=== PATIENT | male | born 1945 | race Caucasian/White ===

== ENCOUNTER → 2018-02-06 | Outpatient (CLI) | payer BC ==
[~2018-02-06] MED LIST: Advil200 M1 PO; BGALA3.3 PO; CLOB.05TC TOP; ERGO400; Gas-X125 MG PO; NAPR220 PO; Pepto-Bismol262 M1 PO; XYZAL5 MG PO
== END | disposition home or self-care (01) ==
LOC: PLD 08:31 → LAB SHORT 08:31
DX: D48.5 Neoplasm of uncertain behavior of skin (principal); L72.9 Follicular cyst of the skin and subcutaneous tissue, unspecified
CPT/HCPCS: 88304

== ENCOUNTER 2018-05-31 15:57 | Emergency (ER) | payer BC, MEDICARE ==
[~2018-05-31] VITALS: Ht 175.3 cm; Wt 83.0 kg
[~2018-05-31 15:57] MED LIST changes: -ERGO400; +ERGO400 PO
[2018-05-31] MEDS ORDERED: TRAM50 PO (16:41)
[2018-05-31] MEDS ORDERED: Prednisone2.5 MG PO (16:42)
[2018-05-31] MEDS ORDERED: CALCIUM 500 +1 EAC1 PO (16:43)
[2018-05-31] MEDS ORDERED: PRED20 PO (16:44)
[2018-05-31 19:00] LABS: Source, Urine Clean Catch
[2018-05-31 19:07] LABS: Appearance, Urine Hazy (Clear); Bilirubin, Urine Neg (Neg); Blood, Urine 1+ (Neg); Color, Urine Yellow (P-Yellow); Glucose Qualitative, Urine 1+ (Neg); Ketones, Urine 1+ (Neg); Leukocyte Esterase, Urine 1+ (Neg); Nitrite, Urine Neg (Neg); Protein, Urine 2+ (Neg); Urobilinogen, Urine 1+ (Normal)
[2018-05-31 19:45] LABS: White Blood Cells, Urine 0-2 /hpf (0-5)
[2018-05-31 19:46] LABS: Red Blood Cells, Urine 0-2 /hpf (0-2); Renal Epithelial Rare /hpf (0-Rare)
[2018-05-31 19:47] LABS: Bacteria Few /hpf; Calcium Oxalate Crystals Many /hpf; Squamous Epithelial Cells Rare /hpf (Few)
[2018-05-31] MEDS ORDERED: CYCL10 PO (21:41)
[2018-05-31] MEDS ORDERED: Norco 5-325 Ta1 EACH PO (21:41)
== END 2018-05-31 22:04 | disposition home or self-care (01) ==
LOC: ER 15:57
PROVIDERS: Emergency Medicine
DX: M48.54XA Collapsed vertebra, not elsewhere classified, thoracic region, initial encounter for fracture (principal); M35.3 Polymyalgia rheumatica; Z88.2 Allergy status to sulfonamides; Z79.899 Other long term (current) drug therapy
CPT/HCPCS: 72070; 72128; 81001; 96372; 99284-25; J1885; J3010

== ENCOUNTER 2018-07-27 23:27 | Inpatient (IN) | payer MEDICARE, BC ==
[~2018-07-27] VITALS: Ht 177.8 cm; Wt 81.8 kg
[~2018-07-27 23:27] MED LIST changes: -BGALA3.3 PO; +CALCIUM 500 +1 EAC1 PO; +CYCL10 PO; +Dairy Relie3000 UNIT PO; +Norco 5-325 Ta1 EACH PO; +PRED20 PO; +Prednisone2.5 MG PO; +TRAM50 PO
[2018-07-28 00:24] LABS: Hematocrit 41.9 % (37.0-53.0); Mean Corpuscular HGB 31.6 pg (26.0-34.0); Mean Corpuscular HGB Conc 33.4 g/dL (31.5-36.5); Mean Corpuscular Volume 95 fL (80-100); Mean Platelet Volume 9.4 fL (9.1-12.4); Platelet Count 179 K/mm3 (150-400); RDW Coefficient Variation 12.3 % (11.7-14.2); Red Blood Cell Count 4.43 M/mm3 (4.30-5.90); White Blood Cell Count 5.22 K/mm3 (4.00-11.30)
[2018-07-28 00:36] LABS: International Normalized Ratio 1.08; Prothrombin Time Results 11.4 Sec (9.7-11.5)
[2018-07-28 00:37] LABS: Influenza A Positive (NEGATIVE); Influenza B Negative (NEGATIVE)
[2018-07-28 00:38] LABS: Alanine Aminotransfer (ALT/SGP 62 U/L (12-78); Albumin, Blood 3.3 g/dL (3.4-5.0); Albumin/Globulin Ratio 1.2 (0.8-1.8); Alk Phos 68 U/L (50-136); Anion Gap 10 mmol/L (6-16); Aspartate Aminotrans (AST/SGOT 34 U/L (12-37); Bilirubin, Total 1.4 mg/dL (0.1-1.0); Blood Urea Nitrogen 17 mg/dL (8-24); Bun/Creatinine Ratio 20.6 (12.0-20.0); CO2, Blood 21 mmol/L (21-32); Calcium, Blood 8.1 mg/dL (8.5-10.1); Chloride, Blood 105 mmol/L (98-108); Creatinine, Blood 0.82 mg/dL (0.60-1.20); Globulin, Blood 2.7 g/dL (2.2-4.0); Glomerular Filtration Rate >60 (60-); Glucose, Blood 91 mg/dL (70-99); Potassium, Blood 3.7 mmol/L (3.5-5.5); Sodium, Blood 136 mmol/L (136-145)
[2018-07-28 00:48] LABS: BAND PERCENT MAN 10 % (0-8); BASOPHILS ABSOLUTE MAN 0.05 K/mm3 (0.00-0.23); BASOPHILS PERCENT MAN 1 % (0-2); EOSINOPHILS PERCENT MAN 0 % (0-6); LYMPHOCYTES PERCENT MAN 4 % (21-46); MONOCYTES ABSOLUTE MAN 0.31 K/mm3 (0.16-1.47); MONOCYTES PERCENT MAN 6 % (4-13); MYELOCYTE ABSOLUTE MAN 0.05 K/mm3 (0.00-0.00); MYELOCYTE PERCENT MAN 1 % (0-0); NEUTROPHILS ABSOLUTE MAN 4.59 K/mm3 (1.96-9.15); SEG NEUTROPHILS PERCENT MAN 78 % (41-73); TOTAL CELLS COUNTED 100
[2018-07-28 03:25] LABS: Bilirubin, Urine Neg (Neg); Blood, Urine 1+ (Neg); Glucose Qualitative, Urine Neg (Neg); Ketones, Urine 4+ (Neg); Leukocyte Esterase, Urine Neg (Neg); Nitrite, Urine Neg (Neg); Protein, Urine 2+ (Neg); Source, Urine Catheter; Urobilinogen, Urine NORM (Normal)
[2018-07-28 03:47] LABS: Appearance, Urine Clear (Clear); Color, Urine Yellow (P-Yellow)
[2018-07-28 03:48] LABS: Bacteria Not Seen /hpf; Mucus Light (0-Heavy); Red Blood Cells, Urine Rare /hpf (0-2); Squamous Epithelial Cells Not Seen /hpf (Few); White Blood Cells, Urine Rare /hpf (0-5)
[2018-07-28 04:53] LABS: Source, Urine Clean Catch
[2018-07-28 04:59] LABS: Bilirubin, Urine Neg (Neg); Blood, Urine Neg (Neg); Glucose Qualitative, Urine Neg (Neg); Ketones, Urine 3+ (Neg); Leukocyte Esterase, Urine Neg (Neg); Nitrite, Urine Neg (Neg); Protein, Urine Neg (Neg); Urobilinogen, Urine NORM (Normal)
[2018-07-28 05:01] LABS: Appearance, Urine Clear (Clear); Color, Urine Yellow (P-Yellow)
[2018-07-28 05:51] LABS: Mean Corpuscular HGB 31.5 pg (26.0-34.0); Mean Corpuscular HGB Conc 32.6 g/dL (31.5-36.5); Mean Corpuscular Volume 97 fL (80-100); Mean Platelet Volume 9.7 fL (9.1-12.4); Platelet Count 156 K/mm3 (150-400); RDW Coefficient Variation 12.5 % (11.7-14.2); Red Blood Cell Count 4.45 M/mm3 (4.30-5.90); White Blood Cell Count 4.93 K/mm3 (4.00-11.30)
[2018-07-28 06:12] LABS: Adenovirus Not Detected (NOT DETECT); Bordetella pertussis Not Detected (NOT DETECT); Chlamydophila pneumoniae Not Detected (NOT DETECT); Coronavirus 229E Not Detected (NOT DETECT); Coronavirus HKU1 Not Detected (NOT DETECT); Coronavirus NL63 Not Detected (NOT DETECT); Coronavirus OC43 Not Detected (NOT DETECT); Human Metapneumovirus Not Detected (NOT DETECT); Human Rhinovirus/Enterovirus Not Detected (NOT DETECT); Influenza A Detected (NOT DETECT); Influenza A/2009-H1 Detected (NOT DETECT); Influenza A/H1 Not Detected (NOT DETECT); Influenza A/H3 Not Detected (NOT DETECT); Influenza B Not Detected (NOT DETECT); Mycoplasma pneumoniae Not Detected (NOT DETECT); Parainfluenza Virus 1 Not Detected (NOT DETECT); Parainfluenza Virus 2 Not Detected (NOT DETECT); Parainfluenza Virus 3 Not Detected (NOT DETECT); Parainfluenza Virus 4 Not Detected (NOT DETECT); Respiratory Syncytial Virus Not Detected (NOT DETECT)
[2018-07-28 06:21] LABS: Alanine Aminotransfer (ALT/SGP 57 U/L (12-78); Albumin, Blood 3.2 g/dL (3.4-5.0); Albumin/Globulin Ratio 1.2 (0.8-1.8); Alk Phos 65 U/L (50-136); Anion Gap 6 mmol/L (6-16); Aspartate Aminotrans (AST/SGOT 35 U/L (12-37); Bilirubin, Total 1.4 mg/dL (0.1-1.0); Blood Urea Nitrogen 17 mg/dL (8-24); Bun/Creatinine Ratio 19.4 (12.0-20.0); CO2, Blood 26 mmol/L (21-32); Calcium, Blood 8.2 mg/dL (8.5-10.1); Chloride, Blood 105 mmol/L (98-108); Creatinine, Blood 0.88 mg/dL (0.60-1.20); Globulin, Blood 2.7 g/dL (2.2-4.0); Glomerular Filtration Rate >60 (60-); Glucose, Blood 83 mg/dL (70-99); Potassium, Blood 4.1 mmol/L (3.5-5.5); Sodium, Blood 137 mmol/L (136-145); Total Protein, Blood 5.9 g/dL (6.4-8.2)
--- NOTE | 2018-07-28 06:37 | NUR ---
SHIFT SUMMARY PT NEW ED ADMIT THIS AM AT APPROX 0400. VERY WEAK AND TIRED BUT ALERT AND ORIENTED AND ANSWERS QUESTIONS APPROPRIATELY. HX OF RECENT FALL AT HOME. BED ALARM ON FOR SAFETY. PT STATED THAT HE WAS UNABLE TO STAND UPON ADMISSION. SLID OVER FROM ED GURNEY AND ON TO HOSPITAL BED. HAS BEEN CONTINENT SO FAR, USING THE URINAL BUT WAS REPORTED TO BE INCONTINENT IN ED. ATTENDS IN PLACE. UA SENT. BLADDER SCAN 22 ML POST VOID AFTER VOIDING 170 ML. RESPIRATORY PANEL ALSO COLLECTED AND SENT TO LAB. PT UNABLE AT THIS TIME TO PRODUCE ANY SPUTUM. PT HAS DRY HACKING NONPRODUCTIVE COUGH. TROPONIN ELEVATED AT 0.071, TELEMETRY UNIT PLACED READING SR 77. PT ON RA, O2 SATS IN THE LOW 90'S. AFEBRILE SINCE ADMISSION. REPORT OF TYLENOL GIVEN BY EMS. INFLUENZA A POSITIVE. PT OVERALL LOOKS ILL. RESTING IN BED AT THIS TIME. WILL REPORT TO DAY RN.
--- NOTE | 2018-07-28 08:30 | NUR ---
PT A/O DENIES PAIN. SOMEWHAT SLOW TO RESPOND. SAYS TIRED. H/R REG, NO MURMER NOTED. PER TELE NSR AT 81; RESP EASY, UNLABORED. ON R/A. LUNGS ARE COARSE AND WHEEZY T/O. BT X4 LAST BM F2 DAYS. STATES NOT EATING MUCH. VOIDS PER UIRINAL. 1 ASST TO BSC. BED IN LOW POSITION, CALL LITE IN REACH, CALLS APPROP
[2018-07-28 09:08] LABS: CPK Creatine Kinase 347 U/L (39-308)
[2018-07-28 09:30] LABS: Creatine Kinase MB < 1.0 ng/mL (0.0-3.6); Creatine Kinase MB Index 0.3 (0.0-4.0)
--- NOTE | 2018-07-28 12:43 | NUR ---
PATIENT DID NOT WANT LUNCH WHEN I BROUGHT IT IN TO HIM. PATIENT DECLINED HE IS NOT FEELING WELL. RN NOTOFIED. I OFFERED ALTERNATIVES AND LET PATIENT KNOW TO LET ME KNOW IF HE GETS HUNGRY.
[2018-07-28 16:59] LABS: CPK Creatine Kinase 366 U/L (39-308); Troponin I 0.051 ng/mL (0.000-0.040)
[2018-07-28 17:25] LABS: Creatine Kinase MB < 1.0 ng/mL (0.0-3.6); Creatine Kinase MB Index 0.3 (0.0-4.0)
--- NOTE | 2018-07-28 18:15 | NUR ---
PT PLEASANT TODAY. LOOKS BETTER THIS JAYE. ASKED TO WALK TO BATHROOM. THAT IS AN IMPROVEMENT. PT STILL COARSE. RESP EASY, UNLABORED. BED IN LOW POSITION, CALL LITE IN REACH, CALLS APPROP.
[2018-07-29 04:56] LABS: BASOPHILS ABSOLUTE AUTO 0.01 K/mm3 (0.00-0.23); BASOPHILS PERCENT AUTO 0 % (0-2); EOSINOPHILS ABSOLUTE AUTO 0.01 K/mm3 (0.00-0.68); EOSINOPHILS PERCENT AUTO 0 % (0-6); Hematocrit 41.9 % (37.0-53.0); IMMATURE GRAN ABSOLUTE AUTO 0.02 K/mm3 (0.00-0.10); IMMATURE GRAN PERCENT AUTO 0 % (0-1); LYMPHOCYTES ABSOLUTE AUTO 0.57 K/mm3 (0.84-5.20); LYMPHOCYTES PERCENT AUTO 12 % (21-46); MONOCYTES ABSOLUTE AUTO 0.85 K/mm3 (0.16-1.47); MONOCYTES PERCENT AUTO 17 % (4-13); Mean Corpuscular HGB 31.9 pg (26.0-34.0); Mean Corpuscular HGB Conc 33.4 g/dL (31.5-36.5); Mean Corpuscular Volume 95 fL (80-100); Mean Platelet Volume 9.6 fL (9.1-12.4); NEUTROPHILS ABSOLUTE AUTO 3.51 K/mm3 (1.96-9.15); NEUTROPHILS PERCENT AUTO 71 % (41-73); Platelet Count 165 K/mm3 (150-400); RDW Coefficient Variation 12.1 % (11.7-14.2); RDW Standard Deviation 43.1 fL (35.1-46.3); Red Blood Cell Count 4.39 M/mm3 (4.30-5.90); White Blood Cell Count 4.97 K/mm3 (4.00-11.30)
[2018-07-29 05:12] LABS: Albumin, Blood 2.9 g/dL (3.4-5.0); Anion Gap 8 mmol/L (6-16); Blood Urea Nitrogen 12 mg/dL (8-24); Bun/Creatinine Ratio 14.8 (12.0-20.0); CO2, Blood 24 mmol/L (21-32); Calcium, Blood 8.1 mg/dL (8.5-10.1); Chloride, Blood 108 mmol/L (98-108); Creatinine, Blood 0.81 mg/dL (0.60-1.20); Glomerular Filtration Rate >60 (60-); Glucose, Blood 87 mg/dL (70-99); Phosphorus, Blood 2.6 mg/dL (2.5-4.9); Potassium, Blood 3.8 mmol/L (3.5-5.5); Sodium, Blood 140 mmol/L (136-145); Troponin I 0.053 ng/mL (0.000-0.040)
--- NOTE | 2018-07-29 05:48 | NUR ---
SHIFT SUMMARY PT BEGINNING TO FEEL MILDLY BETTER BUT CONTINUES TO FEEL MISERABLE. STRENGTH IMPROVING. PT AMBULATED TO RESTROOM WITH SBA AND FWW. WEAK BUT STEADY ON FEET. PT HAS HARSH MOSTLY NONPRODUCTIVE COUGH, HOWEVER PT WAS ABLE TO COUGH UP SOME SPUTUM X 2 TIMES. SPUTUM SAMPLE SENT TO LAB. SPUTUM DARK YELLOW AND THICK. PT ON RA. VSS. SLOWLY IMPROVING. OTHERWISE NO ACUTE CHANGES. WILL CONTINUE TO MONITOR.
--- NOTE | 2018-07-29 08:00 | NUR ---
PT PLEASANT COOP A/O. TALKATIVE. DENIES PAIN, IS WEAK STILL. BUT STATES SLOWLY IMPROVING. H/R REG, NO MURMER NOTED. PER TELE NSR AT 86, NO EVENTS NOTED. LUNGS LIGHTLY COARSE AND WHEEZY T/O. IMPROVED FROM YEST. ON R/A. RESP EASY, UNLABORED. BT X4 LAST BM YEST. LOOSE. VOIDS STANDING AT BEDSIDE WITH URINAL. 1 ASSST TO BATHROOM. BED IN LOW POSITION, CALL LITEIN REACH, CALLS APPROP
--- NOTE | 2018-07-29 17:16 | NUR ---
PT PLEASANT TODAY. DENIES PAIN. I HAVE NOT SEEN TO ROOM , PT STATES SOME IMPROVEMENT. HAS BEEN DENYING THE LACTAIDE EXCEPT WHEN TAKES MILK BASED MEDS. DR BRAND STOPPED IVF. NO OTHER CONCERNS AT THIS TIME. BED IN LOW POSITION, CALL LITE IN REACH, CALLS APPROP
--- NOTE | 2018-07-30 04:28 | NUR ---
*SHIFT SUMMARY* PATIENT IS ALERT AND ORIENTED. ON ROOM AIR. SBA TO BATHROOM OR BEDSIDE TO USE URINAL. PATIENT HAS FINE CRACKLES IN BASES. PATIENT SLEPT OFF AND ON THROUGHOUT THE NIGHT. THIS AM PATIENT CALLED STATING HE FEELS SOB. VITAL SIGNS OBTAINED AND ARE STABLE. PATIENT IS NOT LABORED WITH BREATHING, RESPIRATIONS ARE EQUAL. RT NOTIFIED OF PATIENT'S CURRENT STATUS AND REPORT THEY WILL COME TO EVALUATE THE PATIENT. CALL LIGHT IN REACH. BED LOWERED AND LOCKED.
[2018-07-30 04:54] LABS: Hematocrit 42.1 % (37.0-53.0); Hemoglobin 13.9 g/dL (13.5-17.5); Mean Corpuscular HGB 31.2 pg (26.0-34.0); Mean Corpuscular Volume 95 fL (80-100); Mean Platelet Volume 9.5 fL (9.1-12.4); Platelet Count 179 K/mm3 (150-400); RDW Coefficient Variation 12.1 % (11.7-14.2); RDW Standard Deviation 42.5 fL (35.1-46.3); Red Blood Cell Count 4.45 M/mm3 (4.30-5.90); White Blood Cell Count 3.66 K/mm3 (4.00-11.30)
[2018-07-30 05:26] LABS: Anion Gap 10 mmol/L (6-16); Blood Urea Nitrogen 10 mg/dL (8-24); Bun/Creatinine Ratio 12.8 (12.0-20.0); CO2, Blood 22 mmol/L (21-32); Calcium, Blood 8.4 mg/dL (8.5-10.1); Chloride, Blood 109 mmol/L (98-108); Creatinine, Blood 0.78 mg/dL (0.60-1.20); Glomerular Filtration Rate >60 (60-); Glucose, Blood 83 mg/dL (70-99); Potassium, Blood 3.5 mmol/L (3.5-5.5); Sodium, Blood 141 mmol/L (136-145)
[2018-07-30 10:49] LABS: PCO2 Arterial 33.9 mmHg (35-45); PO2 Arterial 79.1 mmHg (80-100)
--- NOTE | 2018-07-30 15:23 | NUR ---
Patient gave student nurse, Alisha Fleming, permission to access his chart and to help with his care tomorrow, 07/31/18.
--- NOTE | 2018-07-30 17:37 | NUR ---
SHIFT SUMMARY PT IS A FULL CODE. IN DROPLET/CONTACT PRECAUTIONS FOR INFLUENZA A. PT ADMITED FOR FEVER/WEAKNESS W/LLL PNEUMONIA AND ELEVATED TROPONINS. PT IS A&O X4. HE USES A FWW W/1 ASSIST. DURING THIS SHIFT HE DID AMBULATE INDEPENDENTLY TO THE BATHROOM. TELEMETRY WAS DC'D TODAY. PT STATES HE HAS FELT WEAK AND SOB THIS SHIFT, REFUSED TO EAT LUNCH. HE IS ON A LACTOSE FREE DIET. ABG'S WERE DRAWN TODAY. HE HAS FINE COARSE WHEEZES IN HIS LUNGS. HE LIVES AT HOME WITH HIS , WHO IS VERY ILL AT THIS TIME WELL.
--- NOTE | 2018-07-31 04:41 | NUR ---
SHIFT SUMMARY PT RESTED FOR FIRST PART OF SHIFT. PT WAS ABLE TO USE RESTROOM WITHOUT ASSISTANCE. PT HAD NO COMPLAINTS. PT HAD NO ACUTE ISSUES NOTED. PT IS CURRENTLY SLEEPING AND BREATHING EASY. CALL LIGHT IN REACH.
[2018-07-31] MEDS ORDERED: ACET325 PO (12:08)
[2018-07-31] MEDS ORDERED: ALBU90OI INH (12:09)
[2018-07-31] MEDS ORDERED: OSEL75CA PO (12:09)
[2018-07-31] MEDS ORDERED: ALEN70 PO (12:10)
[2018-07-31] MEDS ORDERED: AZIT250 PO (12:10)
--- NOTE | 2018-07-31 19:28 | NUR ---
DISCAHRGE SUMMARY PATIENT A&O X4, INDEPENDENT IN THE ROOM. ALL DISCHARGE INSTRUCTIONS REVIEW WITH PATIENT. MEDICATIONS FAXED TO [facility] IN [place]. IV D/C, WNL. ALL PATIENT QUESTIONS ANSWERED. ESCORTED OUT BY THE [facility] BY WHEELCHAIR. ALL BELONGINGS IN HAND.
== END 2018-07-31 14:20 | disposition home or self-care (01) | DRG 194 ==
LOC: ER 23:27 → MEDS 07-28 01:55 → ENPENDDIS 07-31 10:30 → MEDS 07-31 14:20
PROVIDERS: Family Medicine; Physician Assistant; ADMIT Internal Medicine
DX: J10.00 Influenza due to other identified influenza virus with unspecified type of pneumonia (principal); E27.3 Drug-induced adrenocortical insufficiency; M80.08XA Age-related osteoporosis with current pathological fracture, vertebra(e), initial encounter for fracture; J45.909 Unspecified asthma, uncomplicated; R77.8 Other specified abnormalities of plasma proteins; M35.3 Polymyalgia rheumatica; F41.9 Anxiety disorder, unspecified; R53.1 Weakness; E86.0 Dehydration; T38.0X5A Adverse effect of glucocorticoids and synthetic analogues, initial encounter; Z79.83 Long term (current) use of bisphosphonates; Z79.891 Long term (current) use of opiate analgesic; Z79.899 Other long term (current) drug therapy; Z88.2 Allergy status to sulfonamides
CPT/HCPCS: 36415; 36600; 71045; 71046; 80048; 80053; 80069; 81001; 81003; 82550; 82553; 82803; 83605; 83880; 84484; 85025; 85027; 85379; 85610; 85730; 87040; 87070; 87086; 87205; 87486; 87581; 87633; 87798; 87804; 93005; 93010; 93306; 96365; 96375; 99285-25; J0456; J1650; J2405; J7030; J7050; J7120

== ENCOUNTER → 2019-03-19 | Outpatient (CLI) | payer BC ==
[~2019-03-19] MED LIST changes: +ACET325 PO; +ALBU90OI INH; +ALEN70 PO; +AZIT250 PO; +OSEL75CA PO
== END | disposition home or self-care (01) ==
LOC: LAB SHORT 08:27 → PLD 08:27
DX: D48.5 Neoplasm of uncertain behavior of skin (principal)
CPT/HCPCS: 88305

== ENCOUNTER 2020-09-16 11:59 | Day surgery (SDC) | payer BC ==
[~2020-09-16] VITALS: Ht 172.7 cm; Wt 74.0 kg
[~2020-09-16 11:59] MED LIST changes: +ALLEGRA ALLERG180 MG PO; +CALCIUM 500 +1 EAC4 PO; +Clobetasol Prop50 GM; +HYDHCL25 PO; +LACTASE3000 UNIT PO; +MULTIPLE VITAM1 EACH PO; +Mobic15 MG PO; +VITAMIN D325 MC3 PO
--- NOTE | 2020-09-16 12:46 | NUR ---
09/16/20 1246 Paula Moore PT. TOOK SUTAB FOR HIS PREP.
== END 2020-09-16 14:09 | disposition home or self-care (01) ==
LOC: ORSCSDS 11:59
PROVIDERS: Internal Medicine Gastroenterology
PROC: 0DBH8ZX Excision of Cecum, Via Natural or Artificial Opening Endoscopic, Diagnostic (ICD-10-PCS; principal; 2020-09-16 13:00)
DX: Z12.11 Encounter for screening for malignant neoplasm of colon (principal); Z86.010 Personal history of colon polyps; D12.0 Benign neoplasm of cecum; K57.30 Diverticulosis of large intestine without perforation or abscess without bleeding; I10 Essential (primary) hypertension; K64.8 Other hemorrhoids; Z79.899 Other long term (current) drug therapy
CPT/HCPCS: 88305; J2704; J7120

== ENCOUNTER → 2020-11-25 | Outpatient (CLI) | payer BC ==
[2020-11-25 20:14] LABS: Bilirubin, Urine Neg (Neg); Blood, Urine Neg (Neg); Glucose Qualitative, Urine Neg (Neg); Ketones, Urine Neg (Neg); Leukocyte Esterase, Urine Neg (Neg); Nitrite, Urine Neg (Neg); Protein, Urine Neg (Neg); Specific Gravity, Urine 1.025 (1.003-1.022); Urobilinogen, Urine NORM (Normal)
[2020-11-25 20:26] LABS: Amorphous Heavy (0-Heavy); Appearance, Urine Turbid (Clear); Bacteria Not Seen /hpf; Calcium Oxalate Crystals Mod /hpf; Color, Urine Yellow (P-Yellow); Red Blood Cells, Urine Not Seen /hpf (0-2); Squamous Epithelial Cells Not Seen /hpf (Few); White Blood Cells, Urine Not Seen /hpf (0-5)
== END ==
LOC: LAB 10:24 → LAB SHORT 10:24
PROVIDERS: Family Medicine
DX: E78.2 Mixed hyperlipidemia (principal); I10 Essential (primary) hypertension; R39.81 Functional urinary incontinence
CPT/HCPCS: 81001